=== PATIENT | female | born 1960 | race Caucasian/White ===

== ENCOUNTER 2019-07-02 06:25 | Day surgery (SDC) | payer BC ==
[2019-07-02] MEDS ORDERED: Lactated Ringers 1,000 ML IV SCH (06:45)
[2019-07-02] MEDS ORDERED: fentaNYL 100 MCG/2 ML SDV ONE (07:08)
[2019-07-02] MEDS ORDERED: Midazolam 1 MG/ML 2 ML SDV ONE (07:08)
[2019-07-02] MEDS ORDERED: Propofol 200 MG/20 ML SDV ONE (07:08)
--- NOTE | 2019-07-02 12:45 | OR ---
DATE OF PROCEDURE: 07/02/2019 SURGEON: Constantin Ordoñez MD PREOPERATIVE DIAGNOSIS: Strong family history of colon cancer. Sister had rectal cancer. POSTOPERATIVE DIAGNOSES: Diverticulosis, strong family history of colon cancer, sister had rectal cancer. PROCEDURE: Colonoscopy to the cecum. ANESTHESIA: IV anesthesia with monitored anesthesia care. INDICATION: This 59-year-old white female is referred for a colonoscopy because of a strong family history of colon cancer. Her sister had rectal cancer. She says her last colonoscopic exam was done 6 years ago. I counseled her for the procedure, including risks and alternatives, and she gave her informed consent to proceed. DESCRIPTION OF PROCEDURE: The patient was placed in the left lateral decubitus position. IV anesthesia was administered by the Anesthesia Service. Time-out was held. A rectal exam was performed, which was unremarkable. The flexible video Olympus colonoscope was introduced through her anus, up her rectum, out her colon all way to the cecum. Once the cecum was reached, the scope was slowly withdrawn examining the mucosa throughout. No mucosal abnormalities were noted until we reached the left colon. Here, we saw two diverticula near each other. We saw no other lesions. The scope was brought back into the rectum, where it was retroflexed. The distal rectum appeared unremarkable, except for some minor hemorrhoidal tissue. The scope was straightened and removed. She tolerated the procedure well. Constantin Ordoñez MD /[id number]
== END 2019-07-02 09:05 | disposition home or self-care (01) ==
LOC: JP.SDS 06:25
PROVIDERS: ATTEND Surgery
DX: Z12.11 Encounter for screening for malignant neoplasm of colon (principal); K57.30 Diverticulosis of large intestine without perforation or abscess without bleeding; I10 Essential (primary) hypertension; Z80.0 Family history of malignant neoplasm of digestive organs
CPT/HCPCS: 45378; J2250; J2704; J3010; J7120

== ENCOUNTER 2022-02-16 06:27 | Day surgery (SDC) | payer BC ==
[2022-02-16] MEDS ORDERED: Lactated Ringers 1,000 ML IV SCH (07:00)
[2022-02-16] MEDS ORDERED: Sodium Chloride 0.9% 1,000 ML IV SCH (07:00)
[2022-02-16] MEDS ORDERED: fentaNYL 100 MCG/2 ML SDV ONE (07:22)
[2022-02-16] MEDS ORDERED: Midazolam 1 MG/ML 2 ML SDV ONE (07:22)
[2022-02-16] MEDS ORDERED: Propofol 200 MG/20 ML SDV ONE (07:22)
== END 2022-02-16 09:40 | disposition home or self-care (01) ==
LOC: JP.SDS 06:27
PROVIDERS: ATTEND Surgery
DX: K62.1 Rectal polyp (principal); K57.30 Diverticulosis of large intestine without perforation or abscess without bleeding; K64.9 Unspecified hemorrhoids; I10 Essential (primary) hypertension; G47.00 Insomnia, unspecified
CPT/HCPCS: J2250; J2704; J3010; J7030

== ENCOUNTER 2023-05-08 11:41 | Emergency (ER) | payer BC | END 2023-05-08 13:31 | disposition home or self-care (01) | LOC: JP.ED 11:41 | DX: N61.0 Mastitis without abscess (principal); I10 Essential (primary) hypertension; Z79.899 Other long term (current) drug therapy | CPT/HCPCS: 99283 ==

== ENCOUNTER 2024-09-10 11:10 | Emergency (ER) | payer BC | END 2024-09-10 12:12 | disposition home or self-care (01) | LOC: JP.ED 11:10 | DX: D18.01 Hemangioma of skin and subcutaneous tissue (principal); I10 Essential (primary) hypertension; Z87.891 Personal history of nicotine dependence; Z90.5 Acquired absence of kidney; Z79.899 Other long term (current) drug therapy | CPT/HCPCS: 99282; 99283 ==